=== PATIENT | male | born 1995 | race African-American/Black ===

== ENCOUNTER 2017-10-14 21:24 | Emergency (ER) | payer SELFPAY ==
[2017-10-14 21:46] VITALS: BP 112/62; PULSE 90; TEMP 98.7; BMI 22.7
--- NOTE | 2017-10-14 22:02 | PDOC ---
History of Present Illness - General Chief Complaint: Pain Stated Complaint: TESTICLES Time Seen by Provider: 10/14/17 21:55 History Source: Patient - History of Present Illness Timing/Duration: reports: constant Past History - Past Medical History Allergies/Adverse Reactions: Allergies Allergy/AdvReac Type Severity Reaction Status Date / Time Cephalosporins Allergy Verified 10/14/17 21:43 Home Medications: Ambulatory Orders levoFLOXacin [Levaquin -] 500 mg PO DAILY #10 tablet 10/15/17 COPD: No - Suicide/Smoking/Psychosocial Hx Smoking History: Current every day smoker Have you smoked in the past 12 months: No Information on smoking cessation initiated: No Review of Systems - Review of Systems Constitutional: No: Chills, Fever ABD/GI: No: Nausea, Vomiting, Abdominal cramping : Yes: Testicular Pain. No: Dysuria, Discharge, Flank Pain, Hematuria, Testicular Mass, Testicular Swelling *Physical Exam - Vital Signs Last Vital Signs Temp Pulse Resp BP Pulse Ox 98.7 F 90 16 112/62 97 10/14/17 21:45 10/14/17 21:45 10/14/17 21:45 10/14/17 21:45 10/14/17 21:45 - Physical Exam General Appearance: Yes: Appropriately Dressed. No: Apparent Distress HEENT: positive: Normal Voice Neck: positive: Supple Respiratory/Chest: negative: Respiratory Distress Gastrointestinal/Abdominal: positive: Soft. negative: Tender, Hernia Male Genitalia: positive: normal genitalia, testicular tenderness (to posterior aspect). negative: discharge, testicular mass, epididymus tender Extremity: positive: Normal Inspection Integumentary: positive: Dry, Warm Neurologic: positive: Fully Oriented, Alert, Normal Mood/Affect ED Treatment Course - RADIOLOGY Radiology Studies Ordered: Category Date Time Status SCROTUM AND CONTENTS US [US] Stat Ultrasound 10/14/17 21:58 Ordered Medical Decision Making - Medical Decision Making 10/14/17 21:59 22-year-old male, no significant history, here with R testicular pain 2 days. Denies any trauma. No dysuria, penile discharge, nausea, vomiting, fever or chills. No history of similar episode. Is sexually active with new female partner and does not always use condoms. Denies h/o STD. Patient well- appearing and stable with exam only remarkable for tenderness to palpation to inferior aspect of right testes, no obvious testicular swelling and no evidence of hernia. Less likely torsion, possibly epipidymitis vs hydrocele/varicocele. UA, STD cultures and ultrasound pending *DC/Admit/Observation/Transfer Diagnosis at time of Disposition: Epididymitis - Discharge Dispostion Disposition: HOME Condition at time of disposition: Improved - Prescriptions Prescriptions: levoFLOXacin [Levaquin -] 500 mg PO DAILY #10 tablet - Referrals Referrals: Tae Sweeney MD [Staff Physician] - - Patient Instructions Printed Discharge Instructions: DI for Epididymitis Additional Instructions: You might have an infection of the area behind your testicles. Please take your antibiotics daily. Please follow up with your primary care physician when you return home. Please return to the ED if you have worsening pain, fevers, chills , nausea, vomiting, or other concerning symptoms. You can use Tylenol or ibuprofen for the carrillo. - Post Discharge Activity
[2017-10-14 22:17] LABS: URINE APPEARANCE CLOUDY; URINE BILIRUBIN NEGATIVE (<2.0 mg/dL); URINE BLOOD NEGATIVE (NEGATIVE); URINE COLOR YELLOW; URINE GLUCOSE (UA) NEGATIVE (NEGATIVE); URINE KETONE NEGATIVE (NEGATIVE); URINE NITRITE NEGATIVE (NEGATIVE); URINE PROTEIN NEGATIVE (NEGATIVE); URINE UROBILINOGEN 4.0 E.U/dl mg/dL (0.2-1.0)
[2017-10-14 22:44] LABS: URINE LEUK ESTERASE 1+ (NEGATIVE)
[2017-10-14] MEDS ORDERED: AZITHROMYCIN 1 GM PACKET PO ONE (23:57)
[2017-10-14 23:58] LABS: URINE MUCUS RARE
[2017-10-15] MEDS ORDERED: AZITHROMYCIN 250 MG TABLET ONE (00:01)
--- NOTE | 2017-10-15 00:16 | PDOC ---
*Physical Exam - Vital Signs Last Vital Signs Temp Pulse Resp BP Pulse Ox 98.7 F 90 16 112/62 97 10/14/17 21:45 10/14/17 21:45 10/14/17 21:45 10/14/17 21:45 10/14/17 21:45 ED Treatment Course - ADDITIONAL ORDERS Additional order review: Laboratory Results 10/14/17 22:00 Urine Color Yellow Urine Appearance Cloudy Urine pH 7.0 Ur Specific Gilbert 1.018 Urine Protein Negative Urine Glucose (UA) Negative Urine Ketones Negative Urine Blood Negative Urine Nitrite Negative Urine Bilirubin Negative Urine Urobilinogen 4.0 e.u/dl Ur Leukocyte Esterase 1+ H Urine WBC (Auto) None Urine RBC (Auto) <1 Urine Mucus Rare - Medications Given in the ED: ED Medications Discontinued Medications Generic Name Dose Route Start Last Admin Trade Name Estebanq PRN Reason Stop Dose Admin Azithromycin 1 gm 10/14/17 23:57 10/15/17 00:02 Zithromax - PO 10/14/17 23:58 1 gm ONCE ONE Administration Medical Decision Making - Medical Decision Making Ulltrasound demonstrating right epidydmal orchitis but patient allergic to cephalasporins so given 1 G azithromycin in ED and discharged with levaquin 500 Mg daily for 10 days. Patient discharged in stable condition with follow up and and return precautions. Patient is out of town visiting from [place] so he will follow up with his PCP there. 10/15/17 00:10 *DC/Admit/Observation/Transfer Diagnosis at time of Disposition: Epididymitis - Discharge Dispostion Disposition: HOME Condition at time of disposition: Improved Admit: No - Referrals Referrals: Tae Sweeney MD [Staff Physician] - - Patient Instructions Printed Discharge Instructions: DI for Epididymitis Additional Instructions: You might have an infection of the area behind your testicles. Please take your antibiotics daily. Please follow up with your primary care physician when you return home. Please return to the ED if you have worsening pain, fevers, chills , nausea, vomiting, or other concerning symptoms. You can use Tylenol or ibuprofen for the carrillo. - Post Discharge Activity
== END 2017-10-15 00:22 | disposition home or self-care (01) ==
LOC: JER 21:24 → JERFT 21:24 → JER 10-15 00:22
DX: N45.1 Epididymitis (principal)
CPT/HCPCS: 36415; 76870-TC; 81003; 81015; 87086; 87491; 87591; 99283-25